=== PATIENT | female | born 1940 | race Caucasian/White ===

== ENCOUNTER → 2017-12-29 | Outpatient (CLI) | payer OTHER ==
[2017-12-29 12:26] LABS: BASO % 0.4 %; BASO ABS # 0.03 K/uL (0-0.2); EOS ABS # 0.15 K/uL (0-0.5); HEMATOCRIT 34.5 % (37-47); IG# 0.02 K/uL (0.00-0.02); LYMPH % 15.1 %; LYMPH ABS # 1.11 K/uL (1.2-3.4); MEAN CELL VOLUME 101.5 fL (80-100); MEAN CORPUSCULAR HEMOGLOBIN 32.4 pg (25-34); MEAN CORPUSCULAR HGB CONC 31.9 g/dl (32-36); MEAN PLATELET VOLUME 11.4 fL (7.4-10.4); MONO % 9.6 %; MONO ABS # 0.71 K/uL (0.11-0.59); NEUT % 72.6 %; NEUT ABS # 5.35 K/uL (1.4-6.5); PLATELET COUNT 305 K/uL (130-400); RED CELL DISTRIBUTION WIDTH CV 14.1 % (11.5-14.5); RED CELL DISTRIBUTION WIDTH SD 51.6 fL (36.4-46.3); WHITE BLOOD COUNT 7.37 K/uL (4.8-10.8)
[2017-12-29 13:45] LABS: ALT/SGPT 51 U/L (12-78); BLOOD UREA NITROGEN 12 mg/dl (7-18); CALCIUM 8.4 mg/dl (8.5-10.1); CARBON DIOXIDE 30 mmol/L (21-32); CHOLESTEROL 157 mg/dl (0-200); CREATININE 0.53 mg/dl (0.60-1.20); GLUCOSE 87 mg/dl (70-99); POTASSIUM 3.5 mmol/L (3.5-5.1); SODIUM 140 mmol/L (136-145)
[2017-12-29 13:48] LABS: ALKALINE PHOSPHATASE 406 U/L (45-117); AST/SGOT 63 U/L (15-37); LDL CHOLESTEROL CALCULATED 112 mg/dl; TOTAL PROTEIN 8.1 gm/dl (6.4-8.2)
== END | disposition home or self-care (01) ==
LOC: C.LABMFLN 08:53
PROVIDERS: ATTEND Family Medicine
DX: E78.5 Hyperlipidemia, unspecified (principal); D64.9 Anemia, unspecified

== ENCOUNTER → 2018-01-07 | Outpatient (CLI) | payer OTHER ==
[2018-01-07 13:09] LABS: BASO % 0.7 %; BASO ABS # 0.05 K/uL (0-0.2); EOS % 1.9 %; EOS ABS # 0.14 K/uL (0-0.5); HEMATOCRIT 32.6 % (37-47); HEMOGLOBIN 10.2 g/dL (12.0-16.0); IG# 0.01 K/uL (0.00-0.02); LYMPH % 12.4 %; LYMPH ABS # 0.91 K/uL (1.2-3.4); MEAN CELL VOLUME 101.6 fL (80-100); MEAN CORPUSCULAR HEMOGLOBIN 31.8 pg (25-34); MEAN CORPUSCULAR HGB CONC 31.3 g/dl (32-36); MEAN PLATELET VOLUME 11.4 fL (7.4-10.4); MONO % 6.4 %; MONO ABS # 0.47 K/uL (0.11-0.59); NEUT % 78.5 %; NEUT ABS # 5.78 K/uL (1.4-6.5); PLATELET COUNT 310 K/uL (130-400); RED CELL DISTRIBUTION WIDTH CV 14.5 % (11.5-14.5); RED CELL DISTRIBUTION WIDTH SD 53.6 fL (36.4-46.3); WHITE BLOOD COUNT 7.36 K/uL (4.8-10.8)
== END | disposition home or self-care (01) ==
LOC: C.LABMFLN 08:11
PROVIDERS: ATTEND Family Medicine
DX: I10 Essential (primary) hypertension (principal); D64.9 Anemia, unspecified

== ENCOUNTER → 2018-01-28 | Outpatient (CLI) | payer OTHER ==
[2018-01-28 12:58] LABS: BASO % 0.6 %; BASO ABS # 0.04 K/uL (0-0.2); EOS % 1.6 %; HEMATOCRIT 30.7 % (37-47); HEMOGLOBIN 9.9 g/dL (12.0-16.0); IG# 0.02 K/uL (0.00-0.02); LYMPH % 14.8 %; LYMPH ABS # 0.92 K/uL (1.2-3.4); MEAN CELL VOLUME 98.4 fL (80-100); MEAN CORPUSCULAR HEMOGLOBIN 31.7 pg (25-34); MEAN CORPUSCULAR HGB CONC 32.2 g/dl (32-36); NEUT % 74.7 %; NEUT ABS # 4.65 K/uL (1.4-6.5); PLATELET COUNT 304 K/uL (130-400); RED CELL DISTRIBUTION WIDTH CV 14.7 % (11.5-14.5); RED CELL DISTRIBUTION WIDTH SD 52.7 fL (36.4-46.3); WHITE BLOOD COUNT 6.23 K/uL (4.8-10.8)
[2018-01-28 14:05] LABS: ALBUMIN 1.9 gm/dl (3.4-5.0); ALT/SGPT 57 U/L (12-78); AST/SGOT 76 U/L (15-37); BLOOD UREA NITROGEN 17 mg/dl (7-18); CALCIUM 8.3 mg/dl (8.5-10.1); CARBON DIOXIDE 27 mmol/L (21-32); CREATININE 0.62 mg/dl (0.60-1.20); GLUCOSE 88 mg/dl (70-99); POTASSIUM 3.3 mmol/L (3.5-5.1); SODIUM 139 mmol/L (136-145)
[2018-01-28 14:08] LABS: ALKALINE PHOSPHATASE 469 U/L (45-117); TOTAL PROTEIN 8.1 gm/dl (6.4-8.2); TRANSFERRIN 184 mg/dl (200-360)
== END | disposition home or self-care (01) ==
LOC: C.LABMFLN 09:54
PROVIDERS: ATTEND Internal Medicine Gastroenterology
DX: D50.8 Other iron deficiency anemias (principal); K83.0 Cholangitis

== ENCOUNTER → 2018-05-19 | Outpatient (CLI) | payer OTHER ==
[2018-05-19 12:43] LABS: BASO % 0.3 %; BASO ABS # 0.02 K/uL (0-0.2); EOS % 3.6 %; EOS ABS # 0.22 K/uL (0-0.5); HEMATOCRIT 33.7 % (37-47); HEMOGLOBIN 10.8 g/dL (12.0-16.0); LYMPH ABS # 1.04 K/uL (1.2-3.4); MEAN CORPUSCULAR HEMOGLOBIN 33.3 pg (25-34); MEAN PLATELET VOLUME 11.4 fL (7.4-10.4); MONO % 6.5 %; NEUT % 72.6 %; NEUT ABS # 4.45 K/uL (1.4-6.5); PLATELET COUNT 259 K/uL (130-400); RED CELL DISTRIBUTION WIDTH CV 15.4 % (11.5-14.5); WHITE BLOOD COUNT 6.13 K/uL (4.8-10.8)
[2018-05-19 13:05] LABS: ALBUMIN 2.1 gm/dl (3.4-5.0); ALKALINE PHOSPHATASE 555 U/L (45-117); ALT/SGPT 59 U/L (12-78); AST/SGOT 82 U/L (15-37); BLOOD UREA NITROGEN 14 mg/dl (7-18); CALCIUM 8.4 mg/dl (8.5-10.1); CARBON DIOXIDE 30 mmol/L (21-32); CHOLESTEROL 165 mg/dl (0-200); GLUCOSE 76 mg/dl (70-99); LDL CHOLESTEROL CALCULATED 121 mg/dl; POTASSIUM 3.7 mmol/L (3.5-5.1); SODIUM 138 mmol/L (136-145); TOTAL PROTEIN 8.8 gm/dl (6.4-8.2); TRANSFERRIN 195 mg/dl (200-360)
== END | disposition home or self-care (01) ==
LOC: C.LABMFLN 07:59
PROVIDERS: ATTEND Family Medicine
DX: Z00.00 Encounter for general adult medical examination without abnormal findings (principal); D64.9 Anemia, unspecified; I10 Essential (primary) hypertension; E78.5 Hyperlipidemia, unspecified